=== PATIENT | female | born 2000 | race Caucasian/White ===

== ENCOUNTER 2024-02-04 21:25 | Emergency (ER) | payer BC ==
[~2024-02-04 21:25] MED LIST: CYCLOBENZAPRINE10 M1 PO; KETOROLAC10 MG PO
[2024-02-04] MEDS ORDERED: LYMEPAK100 MG PO (21:39)
[2024-02-04] MEDS ORDERED: CEPHALEXIN500 M1 PO (21:39)
[2024-02-04 22:25] VITALS: BP 164/98
== END 2024-02-04 22:25 | disposition home or self-care (01) ==
LOC: ED 21:25
DX: S41.112A Laceration without foreign body of left upper arm, initial encounter (principal); X58.XXXA Exposure to other specified factors, initial encounter

== ENCOUNTER → 2024-02-08 | Outpatient (CLI) | payer BC ==
[~2024-02-08] MED LIST changes: +CEPHALEXIN500 M1 PO; +LYMEPAK100 MG PO
== END ==
LOC: VAS 08:43 → RAD 09:00 → VAS 09:00
DX: I82.409 Acute embolism and thrombosis of unspecified deep veins of unspecified lower extremity (principal)